=== PATIENT | female | born 1990 | race African-American/Black ===

== ENCOUNTER 2017-07-20 02:32 | Emergency (ER) | payer MEDICAID ==
[~2017-07-20] VITALS: Ht 152.4 cm; Wt 61.0 kg
[2017-07-20 03:43] VITALS: BP 112/69
== END 2017-07-20 05:54 | disposition left against medical advice (07) ==
LOC: ER 04:04
DX: Z53.21 Procedure and treatment not carried out due to patient leaving prior to being seen by health care provider (principal)

== ENCOUNTER 2017-10-02 18:49 | Emergency (ER) | payer SELFPAY ==
[~2017-10-02] VITALS: Ht 152.4 cm; Wt 61.0 kg
[2017-10-02 23:02] VITALS: BP 116/76
== END 2017-10-02 23:04 | disposition home or self-care (01) ==
LOC: ER 19:39
DX: S01.511A Laceration without foreign body of lip, initial encounter (principal); F12.10 Cannabis abuse, uncomplicated; Y08.89XA Assault by other specified means, initial encounter; Y93.89 Activity, other specified; Y92.89 Other specified places as the place of occurrence of the external cause; Y99.8 Other external cause status
CPT/HCPCS: 99282

== ENCOUNTER 2025-04-14 21:06 | Emergency (ER) | payer SELFPAY ==
[~2025-04-14] VITALS: Ht 152.4 cm; Wt 60.8 kg
[2025-04-14 21:12] VITALS: O2SAT 98
[2025-04-14 22:09] LABS: BASOPHILS % 0.8 % (0.0-2.0); EOSINOPHILS % 2.2 % (0.0-5.0); HEMATOCRIT. 35.6 % (36.0-48.0); HEMOGLOBIN. 11.6 g/dL (12.0-16.0); LYMPHOCYTES % 40.4 % (20.0-50.0); MEAN PLATELET VOLUME 10.1 fl (7.4-10.4); MONOCYTES % 5.6 % (2.0-8.0); NEUTROPHILS % 51.0 % (40.0-76.0); PLATELET 267 x1000/uL (130-400); RED BLOOD CELL COUNT 4.32 mill/uL (4.2-5.4); RED CELL DISTRIBUTION WIDTH 15.5 % (11.6-14.6)
[2025-04-14] MEDS: LEVETIRACETAM 1500MG PREMIX 100 ML IV STA (22:12)
[2025-04-14 22:20] LABS: CREATININE 1.0 mg/dL (0.6-1.0); UREA NITROGEN BLOOD 7 mg/dL (9-23)
[2025-04-14 22:29] LABS: HCG SCREEN NEGATIVE
[2025-04-14 23:30] VITALS: TEMP 36.8
[2025-04-15] MEDS ORDERED: LEVE-20 MT (00:17)
[2025-04-15 00:34] VITALS: BP 107/73; PULSE 85; RESP 13; O2SAT 97
== END 2025-04-15 01:00 | disposition home or self-care (01) ==
LOC: ER 21:06
DX: F10.129 Alcohol abuse with intoxication, unspecified (principal); R56.9 Unspecified convulsions; Y90.7 Blood alcohol level of 200-239 mg/100 ml
CPT/HCPCS: 80048; 80320; 84703; 85025; 36415; 93005; 96365; 99284; J1953; G0480